=== PATIENT | male | born 1945 | race African-American/Black ===

== ENCOUNTER 2017-07-14 08:57 | Inpatient (IN) | payer MEDICARE, OTHER ==
[~2017-07-14] VITALS: Ht 170.2 cm; Wt 75.3 kg
[2017-07-14 09:48] LABS: HEMATOCRIT. 37.5 % (42.0-52.0); HEMOGLOBIN. 12.4 g/dL (14.0-18.0); MEAN CORPUSCULAR HEMOGLOBIN 30.9 pg (28.0-32.0); MEAN CORPUSCULAR VOLUME 93.8 fL (80.0-94.0); MEAN PLATELET VOLUME 8.9 fl (7.4-10.4); PLATELET 138 x1000/uL (130-400); RED CELL DISTRIBUTION WIDTH 17.4 % (11.6-14.6)
[2017-07-14 09:55] LABS: INR 1.2; PROTHROMBIN TIME 12.5 sec (9.4-11.6)
[2017-07-14 10:05] LABS: CARBON DIOXIDE 24 mEq/L (21-32); CHLORIDE 101 mEq/L (98-107); TROPONIN I 0.12 ng/mL (0.00-0.04)
[2017-07-14] MEDS ORDERED: ONDANSETRON HCL 4MG/2ML VIAL IV STA (10:07)
[2017-07-14] MEDS ORDERED: MORPHINE SULFATE 4 MG/ML CPJ (NOT FOR IM USE) IV STA (10:07)
[2017-07-14] MEDS ORDERED: SODIUM CHLORIDE 0.9% 500 ML IV ONE (10:30)
[2017-07-14 11:09] LABS: PLATELET ESTIMATE NORMAL
[2017-07-14 11:31] LABS: CLARITY URINE CLEAR (CLEAR); COLOR URINE YELLOW (YELLOW); GLUCOSE URINE NEGATIVE (NEGATIVE); KETONES URINE NEGATIVE (NEGATIVE); LEUKOCYTE ESTERASE URINE NEGATIVE (NEGATIVE); NITRITE URINE NEGATIVE (NEGATIVE); OCCULT BLOOD URINE NEGATIVE (NEGATIVE); PH URINE 5.5 (4.5-8.0); PROTEIN URINE 1+ (NEGATIVE)
[2017-07-14] MEDS ORDERED: CEFTRIAXONE 1 G PREMIX 50 ML IV ONE ×2 (11:45)
[2017-07-14] MEDS ORDERED: METRONIDAZOLE 500 MG PREMIX 100 ML IV ONE (11:45)
[2017-07-14 14:07] VITALS: BP 135/85
[2017-07-14] MEDS ORDERED: DIPHENHYDRAMINE 50MG/ML VIAL IV PRN (14:15)
[2017-07-14] MEDS ORDERED: ONDANSETRON HCL 4MG/2ML VIAL IV PRN (14:15)
[2017-07-14] MEDS ORDERED: ACETAMINOPHEN 650MG SUPP PR PRN (14:15)
[2017-07-14] MEDS: HYDROMORPHONE HCL/PF 2MG/ML CPJ IV PRN ×2 (14:32→23:30)
[2017-07-14 14:36] VITALS: BP 133/76
[2017-07-14 16:30] VITALS: BP 117/76
[2017-07-14] MEDS: DEXT 5%/0.45% NACL KCL 10MEQ/L 1,000 ML IV SCH (17:40)
[2017-07-14] MEDS: LEVOFLOXACIN 500MG PREMIX 100 ML IV SCH (17:40)
[2017-07-14 20:00] VITALS: BP 115/82
[2017-07-14] MEDS: METRONIDAZOLE 500 MG PREMIX 100 ML IV SCH (21:52)
[2017-07-15] VITALS (7 sets, daily range): BP systolic 100–123; BP diastolic 47–77
[2017-07-15 00:40] LABS: CREATINE KINASE MB FRACTION 5.4 ng/mL (0.5-3.6); TROPONIN I 0.13 ng/mL (0.00-0.04)
[2017-07-15] MEDS: METRONIDAZOLE 500 MG PREMIX 100 ML IV SCH ×3 (05:33→22:06)
[2017-07-15] MEDS: DEXT 5%/0.45% NACL KCL 10MEQ/L 1,000 ML IV SCH ×2 (05:47→18:11)
[2017-07-15 06:34] LABS: HEMATOCRIT. 35.4 % (42.0-52.0); HEMOGLOBIN. 11.7 g/dL (14.0-18.0); MEAN CORPUSCULAR VOLUME 93.5 fL (80.0-94.0); MEAN PLATELET VOLUME 9.4 fl (7.4-10.4); PLATELET 130 x1000/uL (130-400); RED BLOOD CELL COUNT 3.79 mill/uL (4.7-6.1); RED CELL DISTRIBUTION WIDTH 17.1 % (11.6-14.6)
[2017-07-15 06:43] LABS: CARCINO EMBRYONIC ANTIGEN 3.2 ng/ml
[2017-07-15 07:08] LABS: CHLORIDE 112 mEq/L (98-107)
[2017-07-15 07:22] LABS: PROSTRATE SPECIFIC AG TOTAL 0.78 ng/mL (0.0-4.0)
[2017-07-15 07:35] LABS: CARBON DIOXIDE 21 mEq/L (21-32); CREATINE KINASE 222 IU/L (39-308); CREATINE KINASE MB FRACTION 4.4 ng/mL (0.5-3.6); HDL CHOLESTEROL 67 mg/dL (40-59); LDL CHOLESTEROL 30 mg/dL (5-100); TROPONIN I 0.12 ng/mL (0.00-0.04)
[2017-07-15] MEDS: HYDROMORPHONE HCL/PF 2MG/ML CPJ IV PRN ×2 (10:46→21:10)
[2017-07-15 14:12] LABS: PLATELET ESTIMATE NORMAL
[2017-07-15] MEDS: LEVOFLOXACIN 500MG PREMIX 100 ML IV SCH (17:29)
[2017-07-16] VITALS: BP 102/69
[2017-07-16 04:00] VITALS: BP 104/71
[2017-07-16] MEDS: HYDROMORPHONE HCL/PF 2MG/ML CPJ IV PRN (05:14)
[2017-07-16] MEDS: METRONIDAZOLE 500 MG PREMIX 100 ML IV SCH ×2 (05:15→13:21)
[2017-07-16 06:06] LABS: CARBON DIOXIDE 26 mEq/L (21-32); CHLORIDE 103 mEq/L (98-107)
[2017-07-16 06:12] LABS: HEMATOCRIT. 34.6 % (42.0-52.0); HEMOGLOBIN. 11.5 g/dL (14.0-18.0); MEAN CORPUSCULAR HEMOGLOBIN 31.3 pg (28.0-32.0); MEAN CORPUSCULAR VOLUME 94.5 fL (80.0-94.0); MEAN PLATELET VOLUME 9.7 fl (7.4-10.4); PLATELET 114 x1000/uL (130-400); RED BLOOD CELL COUNT 3.66 mill/uL (4.7-6.1); RED CELL DISTRIBUTION WIDTH 17.1 % (11.6-14.6)
[2017-07-16 08:17] VITALS: BP 91/61
[2017-07-16] MEDS: DEXT 5%/0.45% NACL KCL 10MEQ/L 1,000 ML IV SCH (09:58)
[2017-07-16] MEDS ORDERED: TLXL5 MT (10:57)
[2017-07-16 12:00] VITALS: BP 102/68
[2017-07-16 12:16] LABS: PLATELET ESTIMATE SLIGHTLY DECREASED
[2017-07-16 15:43] VITALS: BP 111/73
[2017-07-16 15:53] VITALS: BP 111/73
== END 2017-07-16 17:09 | disposition home or self-care (01) | DRG 444 ==
LOC: ER 09:04 → 6WST 12:08 → ENRESERV 12:20
PROVIDERS: ADMIT Hospitalist; ATTEND Hospitalist
DX: K80.66 Calculus of gallbladder and bile duct with acute and chronic cholecystitis without obstruction (principal); N17.0 Acute kidney failure with tubular necrosis; I11.0 Hypertensive heart disease with heart failure; D63.8 Anemia in other chronic diseases classified elsewhere; E86.0 Dehydration; I45.10 Unspecified right bundle-branch block; I50.9 Heart failure, unspecified; Z96.642 Presence of left artificial hip joint; M89.9 Disorder of bone, unspecified; Z85.118 Personal history of other malignant neoplasm of bronchus and lung; Z87.891 Personal history of nicotine dependence; Z92.21 Personal history of antineoplastic chemotherapy; Z92.3 Personal history of irradiation
CPT/HCPCS: 36415; 71010; 74176; 74181; 76705; 80048; 80053; 80061; 81001; 82105; 82378; 82550; 82553; 83605; 83690; 84153; 84484; 85025; 85610; 86301; 93005; 93306; 96361; 96365; 96375; 99285; J0696; J1170; J1956; J2270; J2405; J3490; J7030; J7040